=== PATIENT | female | born 1930 | race Caucasian/White ===

== ENCOUNTER 2016-07-11 07:45 | Emergency (ER) | payer MEDICARE, OTHER ==
[2016-07-11 08:12] LABS: BASOPHIL 0.3 % (0-2); EOSINOPHIL 1.1 % (0-7); HCT 32.1 % (37.0-47.0); HGB 10.3 g/dl (12.5-16.0); LYMPHOCYTE 10.9 % (15-48); MCH 31.8 pg (25.0-31.0); MCHC 32.1 g/dL (32.0-36.0); MCV 99.1 fL (78.0-100.0); MONOCYTE 5.9 % (0-12); MPV 12.1 fL (6.0-9.5); NEUTROPHIL 81.8 % (41-80); RBC 3.24 M/uL (4.20-5.40); RDW 16.8 % (11.5-14.0); WBC 7.5 K/uL (4.0-10.5)
[2016-07-11 08:25] LABS: PLT 98 K/uL (150-400)
[2016-07-11 08:28] LABS: CREATININE 5.5 mg/dL (0.5-1.0)
[2016-07-11 08:34] LABS: POTASSIUM 5.8 mmol/L (3.5-5.1)
== END 2016-07-11 10:58 | disposition home or self-care (01) ==
LOC: FER 07:45
PROVIDERS: Emergency Medicine
DX: J18.9 Pneumonia, unspecified organism (principal); N18.6 End stage renal disease; I50.9 Heart failure, unspecified; I48.91 Unspecified atrial fibrillation; F17.210 Nicotine dependence, cigarettes, uncomplicated; Z79.82 Long term (current) use of aspirin; Z79.899 Other long term (current) drug therapy; Z87.09 Personal history of other diseases of the respiratory system; Z95.5 Presence of coronary angioplasty implant and graft
CPT/HCPCS: 36415; 36600; 71020; 80048; 82803; 84484; 85025; 87804; 87899; 93005